=== PATIENT | male | born 1995 | race Caucasian/White ===

== ENCOUNTER 2017-06-28 14:13 | Inpatient (IN) | payer BC, OTHER ==
[~2017-06-28] VITALS: Ht 182.9 cm; Wt 86.2 kg
--- NOTE | 2017-06-28 16:30 | NUR ---
Pre-assessment note: assessed pt in intake office, pt is in stable condition able to sign consents explained protocols and procedures and pt verbalized understanding. pt is stable to be taken to unit at this time
[2017-06-28] MEDS ORDERED: MAG HYDROX/AL HYDROX/SIMETH 30 ML LIQUID UDC PO PRN (16:45)
[2017-06-28] MEDS ORDERED: MIRALAX 17 GM POWD.PACK PO PRN (16:45)
[2017-06-28] MEDS ORDERED: MAGNESIUM HYDROXIDE 30 ML LIQUID UDC PO PRN (16:45)
[2017-06-28] MEDS ORDERED: diphenhydrAMINE 50 MG CAPSULE PO PRN (16:45)
[2017-06-28] MEDS ORDERED: DICYCLOMINE HCL 20 MG TABLET PO PRN (16:45)
[2017-06-28] MEDS ORDERED: LOPERAMIDE HCL 2 MG CAPSULE PO PRN ×2 (16:45)
[2017-06-28] MEDS ORDERED: ONDANSETRON ODT 4 MG TAB.RAPDIS SL PRN (16:45)
[2017-06-28] MEDS ORDERED: CLONIDINE HCL 0.1 MG TABLET PO PRN (16:45)
[2017-06-28] MEDS ORDERED: LORAZEPAM 2 MG/1 ML VIAL IM PRN (16:45)
[2017-06-28] MEDS ORDERED: ONDANSETRON 4 MG/2 ML VIAL IM PRN (16:45)
[2017-06-28] MEDS ORDERED: NICOTINE POLACRILEX 4 MG GUM-PK OF TEN BC PRN (17:00)
[2017-06-28] MEDS ORDERED: NICOTINE 14 MG/24HR PATCH TD PRN (17:00)
[2017-06-28 17:19] LABS: *AMPHETAMINE, URINE POSITIVE (NEGATIVE); *BARBITURATE, URINE NEGATIVE (NEGATIVE); *CANNABINOID, URINE POSITIVE (NEGATIVE); *COCCAINE, URINE NEGATIVE (NEGATIVE); *OPIATE, URINE NEGATIVE (NEGATIVE); *PHENCYCLIDINE SCREEN,URINE NEGATIVE (NEGATIVE)
[2017-06-28] MEDS ORDERED: ONDA4TAB5 PO (17:24)
[2017-06-28] MEDS ORDERED: BENZ0.5T43 PO (17:24)
[2017-06-28] MEDS ORDERED: HYDR-3895 PO (17:24)
[2017-06-28] MEDS ORDERED: PRAZ1CAP5 PO (17:24)
[2017-06-28] MEDS ORDERED: AMOX500C2 PO (17:24)
[2017-06-28] MEDS ORDERED: TRAZ-144 PO (17:24)
[2017-06-28] MEDS ORDERED: OLAN10TA3 PO (17:24)
[2017-06-28] MEDS ORDERED: GABA600T2 PO (17:24)
[2017-06-28] MEDS ORDERED: PRAZ2CAP2 PO (17:24)
[2017-06-28] MEDS ORDERED: GABA-534 PO (17:24)
[2017-06-28] MEDS ORDERED: LITH300C2 PO (17:24)
[2017-06-28] MEDS ORDERED: QUET25TA PO (17:24)
[2017-06-28] MEDS ORDERED: IBUP-1955 PO (17:24)
[2017-06-28] MEDS ORDERED: RISP0.5T20 PO (17:24)
[2017-06-28] MEDS ORDERED: ESTR0.5T PO (17:24)
[2017-06-28] MEDS ORDERED: SPIR100T3 PO (17:40)
[2017-06-28 17:55] LABS: BASOPHILS # (AUTO) 0.1 K/uL (0.0-8.0); BASOPHILS % (AUTO) 0.5 % (0.0-2.0); EOSINOPHILS % (AUTO) 0.1 % (0.0-7.0); HEMATOCRIT 39.1 % (36.7-47.1); HEMOGLOBIN 13.3 g/dL (12.5-16.3); LYMPHOCYTES # (AUTO) 1.2 K/uL (20.0-40.0); LYMPHOCYTES % (AUTO) 9.5 % (20.5-51.5); MEAN CORPUSCULAR HEMOGLOBIN 30.7 uug (23.8-33.4); MEAN CORPUSCULAR HGB CONC 34 g/dL (32.5-36.3); MEAN CORPUSCULAR VOLUME 90.3 fL (73.0-96.2); MONOCYTES # (AUTO) 0.4 K/uL (2.0-10.0); MONOCYTES % (AUTO) 3.6 % (0.0-11.0); NEUTROPHILS # (AUTO) 10.6 K/uL (1.8-8.9); NEUTROPHILS % (AUTO) 86.3 % (38.5-71.5); PLATELET COUNT (AUTO) 167 K/uL (152-348); RED BLOOD CELL COUNT(AUTO) 4.33 MIL/uL (4.06-5.63); WHITE BLOOD COUNT (AUTO) 12.3 K/uL (3.6-10.2)
[2017-06-28] MEDS: THIAMINE HCL 100 MG TABLET PO SCH (18:03)
[2017-06-28] MEDS: LORAZEPAM 1 MG TABLET PO PRN ×2 (18:03→20:56)
--- NOTE | 2017-06-28 18:06 | NUR ---
admission/end of shift note: Pt 22 y/o transgender born a male transforming into a female. Pt is in stable condition at this time, pt appears distant with no eye contact in intake office. after speaking with pt and making her feel more comfortable pt verbalized she has hx of schizoaffective disorder and is currently working as an escort and living out of her car in [place].Pt verbalized she has a seizure 7 years ago. pt is put on seizure precautions at this time. Pt alert and oriented to name, place, and time. P[place]. Skin warm and dry to touch. Respirations even and unlabored. skin check was completed by RN skin is intact. Pt appears disheveled and malodorous. Bilateral fingers with dirt underneath fingernails and toenails. pt with multiple tattoos over generalized body. pt's V/S were taken in intake and at this time in WNL. pt is without a PCP at this time. last ciwa 12 due to anxiety and restlessness. pt verbalized she is anxious and clenching her jaw. ok to administer 1 mg ativan at this time substance hx: -methamphetamine smoke 6-7 hits daily x 3 weeks last used 06/28/17 -etoh (hard alcohol) drinks 750 ml 4-5 times a week last used 06/26/17 -Marijuana smokes 1/8 of a gram a day last used 06/28/17 treatment hx: pt verbalized that she has been to multiple treatment centers and last last one she can recall was [facility] less than 6 months ago
[2017-06-28 18:13] LABS: ALANINE AMINOTRANSFERASE 49 U/L (16-63); ALKALINE PHOSPHATASE 77 U/L (50-136); AMYLASE 31 U/L (25-115); ASPARTATE AMINOTRANSFERASE 26 U/L (15-37); BILIRUBIN,TOTAL 0.5 mg/dL (0.2-1.0); CARBON DIOXIDE 27 mmol/L (21-32); CHLORIDE 103 mmol/L (98-107); CREATININE 0.7 mg/dL (0.6-1.3); GLUCOSE 87 mg/dL (74-106); MAGNESIUM 1.7 mg/dL (1.8-2.4); POTASSIUM 3.7 mmol/L (3.5-5.1); TOTAL PROTEIN, SERUM 7.2 g/dL (6.4-8.2); UREA NITROGEN, BLOOD 11 mg/dL (7-18)
[2017-06-28 18:23] LABS: THYROID STIMULATING HORMONE 2.412 mIU/mL (0.358-3.740)
[2017-06-28] MEDS ORDERED: BENZTROPINE MESYLATE 0.5 MG TABLET PO SCH (18:30)
[2017-06-28] MEDS ORDERED: MAGNESIUM OXIDE 400 MG TABLET PO ONE (18:30)
[2017-06-28 18:35] LABS: ETHANOL < 3 MG/DL (0-0)
--- NOTE | 2017-06-28 19:20 | NUR ---
RN Note Syringe and Needle Disposal Two unused syringes and 4 unused needles disposed of by 2 RNs.
--- NOTE | 2017-06-28 19:30 | NUR ---
START OF SHIFT Received 22 year old male patient admitted on 06/28/17 for Methamphetamine salts, ETOH and Marijuana withdrawal. Pt is alert and oriented x4. Pt is transgender male who identifies as a female. Pt noted to be odorous, disheveled, anxious, restless, irritable, agitated, fidgety, and withdrawn with poor eye contact. Pt reports using methamphetamine prior to admission today and she reports feeling " kind of up". She is not on taper medications but has PRN medications available. Per endorsement, pt received PRN Ativan 1 mg for CIWA:12. Breathing is even and unlabored, safety measures in place. Will monitor.
[2017-06-28 20:00] VITALS: BP 136/70
[2017-06-28] MEDS: TRAZODONE 50 MG TABLET PO SCH (20:49)
[2017-06-28] MEDS: OLANZAPINE 5 MG TABLET PO SCH (20:49)
[2017-06-28] MEDS: LITHIUM CARBONATE 300 MG TABLET PO SCH (20:50)
[2017-06-28] MEDS: ESTRADIOL 2MG PO SCH (20:50)
--- NOTE | 2017-06-28 20:56 | NUR ---
PRN ATIVAN Pt complains of anxiety, agitation, mild nausea, and dizziness. Pt noted to be fidgety and restless in room. CIWA:14. PRN Ativan 2 mg administered as ordered. Will monitor effectiveness.
--- NOTE | 2017-06-28 21:56 | NUR ---
PRN REASSESSMENT PRN Ativan effective. Pt noted to be less anxious and appears more calm. CIWA:9. Safety measures in place. Will monitor.
[2017-06-29] VITALS: BP 140/80
[2017-06-29 05:22] VITALS: BP 133/72
[2017-06-29] MEDS: LORAZEPAM 1 MG TABLET PO PRN ×4 (05:25→21:12)
--- NOTE | 2017-06-29 05:25 | NUR ---
PRN ATIVAN Pt noted to be restless, anxious, and fidgety. CIWA:13. PRN Ativan administered as ordered. Safety measures in place. Will monitor effectiveness.
--- NOTE | 2017-06-29 06:25 | NUR ---
PRN REASSESSMENT PRN medication effective. Pt noted to be more calm and less restless. CIWA:10. Breathing even and unlabored, safety measures in place. Will monitor.
--- NOTE | 2017-06-29 07:03 | NUR ---
END OF SHIFT Pt is a 22 year old male patient admitted on 06/28/17 for Methamphetamine salts, ETOH and Marijuana withdrawal. Pt remains alert and oriented x4. Pt is transgender male who identifies as a female. Pt was noted to be odorous, disheveled, anxious, restless, irritable, agitated, and fidgety during the shift. At 2055 she received PRN Ativan 2mg for CIWA:14. At 524 she received PRN Ativan 2 mg for CIWA:13. Pt reports she was unable to sleep during the night d/t " I smoked before I got here, so I know I wasn't going to sleep" She is not on taper medications but has PRN medications available. Total intake:1500 , Void:x5, BM:x1. CIWA:10 at 624. Breathing is even and unlabored, safety measures in place. Endorsed to AM shift.
--- NOTE | 2017-06-29 07:13 | NUR ---
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 SHE IS ALERT AND AWAKE AT THIS TIME AND STATES SHE DID NOT SLEEP AT ALL LAST NIGHT BUT IS SURE SHE WILL BE ABLE TO SLEEP DURING THE DAY TODAY. PRN MEDICATION REQUIRED ON PM SHIFT : ATIVAN 2MG PO X 2. LAST CIWA WAS 10 @ 0630. CONTINUE TO FOLLOW MD ORDERS AND OFFER SUPPORTIVE CARE.
[2017-06-29 08:00] VITALS: BP 121/78
[2017-06-29] MEDS: MULTIVITAMINS,THERAPEUTIC TABLET PO SCH (08:54)
[2017-06-29] MEDS: SPIRONOLACTONE 100 MG TABLET PO SCH (08:54)
[2017-06-29] MEDS: THIAMINE HCL 100 MG TABLET PO SCH (08:54)
[2017-06-29] MEDS: FOLIC ACID 1 MG TABLET PO SCH (08:55)
[2017-06-29] MEDS: ESTRADIOL 2MG PO SCH ×3 (08:55→20:08)
[2017-06-29] MEDS: OLANZAPINE 5 MG TABLET PO SCH ×2 (08:55→15:06)
[2017-06-29] MEDS: LITHIUM CARBONATE 300 MG TABLET PO SCH ×2 (08:55→20:08)
--- NOTE | 2017-06-29 08:55 | NUR ---
PRN ATIVAN ATIVAN 1MG PO GIVEN FOR CIWA 11 AND REPORTS OF INCREASED ANXIETY WILL REASSESS
[2017-06-29] MEDS ORDERED: TUBERCULIN,PURIF.PROT.DERIV. 5 TU/0.1 ML TEST ID ONE (09:00)
[2017-06-29] MEDS ORDERED: PATIENT MAY USE OWN MED- MD OK PO SCH (09:00)
--- NOTE | 2017-06-29 09:55 | NUR ---
PRN REASSESS PATIENT IS STILL AWAKE IN BED BUT LESS ANXIOUS, ANTWAN Corona , STATES HE WOULD RATHER PT HAVE VISTARIL INSTEAD OF ATIVAN AT THIS TIME, WILL FOLLOW MD ORDERS.
--- NOTE | 2017-06-29 10:00 | NUR ---
PRN COGENTIN 0.5 MG PO GIVEN PER MD FOR JAW SPASMS, WILL CONTINUE TO MONITOR
[2017-06-29] MEDS ORDERED: GABAPENTIN 300 MG CAPSULE PO ONE (11:15)
[2017-06-29] MEDS ORDERED: HYDROXYZINE PAMOATE 25 MG CAPSULE PO ONE (11:15)
[2017-06-29] MEDS ORDERED: HYDROXYZINE PAMOATE 25 MG CAPSULE PO PRN (11:15)
[2017-06-29 12:00] VITALS: BP 109/59
[2017-06-29] MEDS ORDERED: IBUP-1953 PO (12:41)
[2017-06-29] MEDS ORDERED: CLON0.1T14 PO (12:41)
[2017-06-29] MEDS ORDERED: GABA-534 PO (12:41)
[2017-06-29] MEDS ORDERED: HYDR-3895 PO (12:41)
[2017-06-29] MEDS ORDERED: DIPH50CA37 PO (12:41)
--- NOTE | 2017-06-29 15:00 | NUR ---
ADDITIONAL ZYPREXA PSYCHIATRIST EVALUATED PATIENT, SHE IS HAVING VISUAL AND AUDITORY HALLUCINATIONS, CHANGED ORDER TO 10MG PO TID. 10MG PO GIVEN
[2017-06-29 16:00] VITALS: BP 130/76
--- NOTE | 2017-06-29 16:50 | NUR ---
PRN ATIVAN ATIVAN 2MG PO GIVEN FOR CIWA 17 PATIENT IS STILL HAVING AUDITORY AND VISUAL HALLUCINATIONS AND IS GETTING AGITATED , PACING THE HALLS, SHE STILL HAS NOT SLEPT SINCE SHE WAS ADMITTED OVER 24 HOURS AGO, WILL CONTINUE TO MONITOR AND ASSESS.
--- NOTE | 2017-06-29 17:50 | NUR ---
ATIVAN REASSESS CIWA 13 ( WAS 17) , ATIVAN 2MG PO SOMEWHAT EFFECTIVE, PT IS STILL PACING IN HER ROOM AND REPORTS TO BEING IRRITABLE, CONTINUE TO MONITOR
--- NOTE | 2017-06-29 18:56 | NUR ---
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 PATIENT HAS SCHIZOAFFECTIVE DISORDER AND HAS BEEN RE STARTED ON HER PSYCHE MEDS BUT IS EXPERIENCING AUDIO AND VISUAL HALLUCINATIONS. PATIENT HAS BEEN IRRITABLE AND AGITATED REQUIRING ADDITIONAL PO ZYPREXA AND ATIVAN THIS SHIFT, SHE HAS NOT SLEPT SINCE SHE WAS ADMITTED OVER 24 HOURS AGO AND HAS DIFFICULTY SITTING STILL, SHE PACES THE HALLS AND FREQUENTLY GOES TO THE PATIO TO SMOKE, SHE CANNOT BE REDIRECTED TO STAY IN BED AND CLOSE EYES AND RELAX. PRN MEDS GIVEN ON THIS SHIFT: COGENTIN, ATIVAN X2 AND A 1 TIME ORDER FOR VISTARIL 50MG PO. PATIENT HAD A FLUID INTAKE OF 2000 ML, 5 VOIDS AND 1 BM. LAST CIWA 13 @ 1800. CONTINUE TO FOLLOW MD PLAN OF CARE. ENDORSED TO NIGHT NURSE.
[2017-06-29 20:00] VITALS: BP 129/77
--- NOTE | 2017-06-29 20:00 | NUR ---
START OF SHIFT NOTE RECEIVED REPORT FROM DAY SHIFT NURSE. 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 PATIENT IS ON PRN MEDICATION. PATIENT WITH EPISODE OF AUDITORY AND VISUAL HALLUCINATION DURING THE DAY. PATIENT WAS GIVEN PRN ATIVAN 1 MG , ATIVAN 2 MG AND COGENTIN. LAST CIWA 13. PATIENT WITH NEW ORDER OF COGENTIN. PATIENT RECEIVED DISORIENTED, PER PATIENT HE DOES NOT HAVE A BED AND THAT HES LEAVING TODAY. PATIENT NOTED WITH AUDITORY AND VISUAL HALLUCINATION. REDIRECTED PATIENT. PATIENT ORIENTED X 2. REALITY ORIENTATION PROVIDED. PATIENT WAS PUT ON 1:1 FOR SAFETY. WILL CONTINUE TO MONITOR.
[2017-06-29] MEDS: GABAPENTIN 300 MG CAPSULE PO SCH (20:07)
[2017-06-29] MEDS: TRAZODONE 50 MG TABLET PO SCH (20:07)
--- NOTE | 2017-06-29 20:07 | NUR ---
ONE TIME TRAZADONE ADMINISTRATION PATIENT WAS GIVEN ONE TIME TRAZADONE , PATIENT'S STILL HAVING TROUBLE FALLING ASLEEP SINCE ADMISSION. WILL CONTINUE TO MONITOR
[2017-06-29] MEDS: TRAZODONE 100 MG TABLET PO SCH (21:12)
--- NOTE | 2017-06-29 21:22 | NUR ---
PRN ATIVAN ADMINISTRATION PATIENT ANXIOUS, RESTLESS , IRRITABLE AND HAVING VISUAL AND AUDITORY HALLUCINATIONS. PATIENT STATES THERE'S CAT IN THE ROOM AND FEW PEOPLE. HE ALSO STATES HE HEARS VOICES IN HIS HEAD BUT WILL NOT TELL US WHAT THEY TELL HIM. REALITY ORIENTATION PROVIDED. CIWA 15. WILL MONITOR FOR EFFECTIVENESS
--- NOTE | 2017-06-29 21:50 | NUR ---
RN note one-time Haldol and Benadryl Pt noted to be increasingly confused, disoriented, agitated and paranoid. Dr. Fox notified and he ordered one-time Haldol 5 mg PO and Benadryl 50 mg PO.
[2017-06-29] MEDS ORDERED: diphenhydrAMINE 50 MG CAPSULE PO ONE (22:00)
[2017-06-29] MEDS ORDERED: HALOPERIDOL 5 MG TABLET PO ONE (22:00)
--- NOTE | 2017-06-29 22:22 | NUR ---
PRN ATIVAN RE-ASSESSMENT PATIENT SITTING IN BED, LESS ANXIOUS, CALM BUT STILL FIDGETY. CIWA 10 UPON ASSESSMENT. WILL CONTINUE TO MONITOR.
--- NOTE | 2017-06-29 22:50 | NUR ---
PRN HALDOL AND BENADRYL RE-ASSESSMENT PATIENT SITTING IN BED , LESS ANXIOUS, STILL FIDGETY, MORE CALM, HALDOL AND BENADRYL HELPFUL. WILL CONTINUE TO MONITOR
--- NOTE | 2017-06-30 00:27 | NUR ---
PRN ATIVAN ADMINISTRATION PATIENT SEVERELY ANXIOUS, AGITATED, RESTLESS, PACING, HAVING VISUAL AND AUDITORY HALLUCINATIONS. CIWA 17. REALITY ORIENTATION PROVIDED. WILL MONITOR FOR EFFECTIVENESS
[2017-06-30] MEDS ORDERED: LORAZEPAM 1 MG TABLET PO ONE (00:30)
--- NOTE | 2017-06-30 01:27 | NUR ---
PRN ATIVAN RE-ASSESSMENT PATIENT LYING IN BED COMFORTABLY AT THIS TIME WITH EYES CLOSED. RESPIRATION EVEN AND UNLABORED. WILL CONTINUE TO MONITOR. CIWA DEFERRED
--- NOTE | 2017-06-30 04:00 | NUR ---
CIWA DEFERRED PATIENT SLEEPING. BLOOD PRESSURE REFUSED. P-85 R-15 AND Sp02 AT 98% IN RA. WILL CONTINUE TO MONITOR.
--- NOTE | 2017-06-30 07:09 | NUR ---
END OF SHIFT NOTE PATIENT SLEPT 5 HOURS. FLUID INTAKE 500 ML. VOIDED X 0. NO BM. MONITORED PATIENT THROUGHOUT SHIFT. CONTINUE ON 1:1 FOR SAFETY. PATIENT NOTED WITH AUDITORY AND VISUAL HALLUCINATION DURING SHIFT. PATIENT HAD DIFFICULTY FALLING ASLEEP. ONE TIME TRAZADONE GIVEN. PRN ATIVAN GIVEN 2111 FOR CIWA 15. AT 215, PATIENT WAS GIVEN ONE TIME HALDOL AND BENADRYL GIVEN, MILDLY EFFECTIVE. AT 0027, PATIENT WAS GIVEN PRN ATIVAN 2 MG FOR CIWA 17, EFFECTIVE. PATIENT WAS ASLEEP AT 0127 . CONTINUOS REALITY ORIENTATION PROVIDED. SAFETY MEASURES IN PLACE . CALL LIGHT IN REACH. LAST CIWA 17.
--- NOTE | 2017-06-30 07:20 | NUR ---
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 PATIENT HAS BEEN HAVING VISUAL AND AUDITORY HALLUCINATIONS SINCE ADMISSION AND HAS HAD TROUBLE SLEEPING, SHE ALSO HAS SCHIZOAFFECTIVE DISORDER WHICH SHE TAKES LITHIUM FOR. PRN MEDS REQUIRED ON PM SHIFT : ATIVAN X2, HALDOL, BENADRYL AND TRAZODONE. PATIENT EVENTUALLY SLEPT FOR 5 HOURS. SHE NEEDS CONSTANT REORIENTATION AND DIRECTION, FOR SAFETY SHE IS ON A 1:1 WITH SITTER AT BEDSIDE. LAST CI 17. CONTINUE TO OFFER SUPPORT AND FOLLOW MD PLAN OF CARE.
[2017-06-30 08:00] VITALS: BP 118/67
[2017-06-30 08:07] LABS: HEPATITIS B SURFACE AG Negative (Negative)
[2017-06-30] MEDS: LITHIUM CARBONATE 300 MG TABLET PO SCH ×2 (08:39→20:50)
[2017-06-30] MEDS: MULTIVITAMINS,THERAPEUTIC TABLET PO SCH (08:40)
[2017-06-30] MEDS: SPIRONOLACTONE 100 MG TABLET PO SCH (08:40)
[2017-06-30] MEDS: GABAPENTIN 300 MG CAPSULE PO SCH ×2 (08:40→20:50)
[2017-06-30] MEDS: OLANZAPINE 5 MG TABLET PO SCH ×3 (08:40→16:37)
[2017-06-30] MEDS: FOLIC ACID 1 MG TABLET PO SCH (08:40)
[2017-06-30] MEDS: ESTRADIOL 2MG PO SCH ×3 (08:40→20:50)
[2017-06-30] MEDS: THIAMINE HCL 100 MG TABLET PO SCH (08:40)
--- NOTE | 2017-06-30 08:47 | NUR ---
PRN VISTARIL VISTARIL 25MG PO GIVEN PER PT REQUEST FOR ANXIETY, WILL REASSESS
[2017-06-30] MEDS ORDERED: HALOPERIDOL 2 MG TABLET PO SCH (09:45)
--- NOTE | 2017-06-30 09:47 | NUR ---
PRN REASSESS PT APPEARS MORE CALM , VISTARIL 25MG PO EFFECTIVE, WILL CONTINUE TO MONITOR AND OFFER ASSISTANCE
[2017-06-30 12:00] VITALS: BP 134/72
--- NOTE | 2017-06-30 15:20 | NUR ---
ENDORSEMENT PATIENT ENDORSED TO MOUSTAPHA MERIDA FOR CONTINUATION OF CARE, PATIENT ASLEEP IN BED AT THIS TIME, SITTER AT BEDSIDE, ALL PERTINENT INFO EXCHANGED WITH RN. PRN MEDS GIVEN THIS SHIFT : VISTARIL 25MG PO. LAST LOSWA 8 @ 1500.
--- NOTE | 2017-06-30 15:25 | NUR ---
ASSUMED CARE OF PT WHO IS ASLEEP WITH SITTER AT BEDSIDE. RESP EVEN AND UNLABORED. BED LOW AND LOCKED.
[2017-06-30 16:00] VITALS: BP 122/75
[2017-06-30 17:34] VITALS: BP 122/75
[2017-06-30] MEDS: HALOPERIDOL 1 MG TABLET PO SCH (17:45)
--- NOTE | 2017-06-30 18:47 | NUR ---
END OF SHIFT: PT HAS BEEN SLEEPING ON AND OFF SINCE I ASSUMED CARE THIS AFTERNOON. HE WAS GIVEN HALDOL,ZYPREXA AND ESTRADIOL ORDERED. HE HJAS SITTER AT BEDSIDE FOR SAFETY.PRNS AVAILABLE FOR S/S OF W/D . ANTWAN Junior WILL PASS SHIFT REPORT TO ONCOMING NIGHT NURSE.
--- NOTE | 2017-06-30 19:00 | NUR ---
Start of Shift Patient Received. Patient is in bed sleeping. Breathing even and non labroed. Per endorsement, patient is currently receiving PRN medications for increased signs and symptoms of withdrawal. Patient has been noted with a history of seizures and past medical history of schizoaffective disorder. No episodes of hallucinations noted during shift. No PRN medications administered. Last noted CIWA 8. Patient remains on 1:1 for safety. All needs attended to promptly. Will continue plan of care as ordered.
[2017-06-30 20:38] VITALS: BP 123/78
[2017-06-30] MEDS: diphenhydrAMINE 25 MG CAP PO SCH (20:49)
[2017-06-30] MEDS: TRAZODONE 100 MG TABLET PO SCH (20:49)
[2017-06-30] MEDS: IBUPROFEN 400 MG TABLET PO PRN (20:50)
--- NOTE | 2017-06-30 20:58 | NUR ---
PRN Medication Administration Patient is noted verbalizing increased pain 5/10 due to toothache. PRN Motrin administered. Will continue to monitor.
--- NOTE | 2017-06-30 22:00 | NUR ---
PRN Medication Reassessment Patient is noted in bed sleeping. Breathing even and non labored. Patient received PRN Motrin for increased pain 5/10 due to toothache. PRN noted to be effective as evidence of patient sleeping with no facial grimacing noted. will continue to monitor.
--- NOTE | 2017-07-01 00:15 | NUR ---
Vitals Refused patient is noted in bed sleeping. Breathing even and non labored. Vitals Refused. Respirations noted to be 16. CIWA not able to be completed as per order. Will continue to monitor. Addendum: 07/01/17 at 0105 by CINDI DIEHL LVN Amended: Links added.
--- NOTE | 2017-07-01 04:15 | NUR ---
Vitals Refused Patient is noted in bed sleeping. Breathing even and non labored. Vitals Refused. Respirations noted to be 16. CIWA not able to be completed as per order. Will continue to monitor.
--- NOTE | 2017-07-01 07:08 | NUR ---
End of Shift Patient is in bed sleeping but easily aroused to verbal stimuli. Breathing even and non labored. Patient continues on PRN Medications for increased signs and symptom. Patient received PRN Motrin for pain 5/10 due to toothache with medication noted to be effective. No episodes of confusion or hallucinations noted. Patient noted to sleep a total of 9 hours. Last noted CIWA 13. Patient remains on 1:1 for safety. All needs attended to promptly. Will endorse to continue plan of care as ordered.
--- NOTE | 2017-07-01 07:45 | NUR ---
START OF SHIFT Rcvd endorse from ongoing nurse, client is in room, a/o x 4. Client presents with depressed mood, flat affect, clammy skin, avoidant gaze, and difficulty concentrating. Client reports anxiety, irritability, inability to have a good night sleep, abdominal spasms, decreased appetite and fatigue. Client denies any hallucinations. Client request the 1:1 for safety to be removed from the room stating, "I don't understand why someone has to be in my room at all times." Additional education regarding 1:1 sitter for safety discussed with client. Client has no inquiries at this time. Encourage client to attend group therapy to learn skills to maintain sober. Encourage PO fluid as tolerated to maintain hydration. Last CIWA 13 @ 1999. Client slept 5 hrs. Seizure precautions rendered. Call light within reach.
[2017-07-01 08:30] VITALS: BP 123/79
[2017-07-01] MEDS: GABAPENTIN 300 MG CAPSULE PO SCH ×3 (08:43→20:24)
[2017-07-01] MEDS: OLANZAPINE 5 MG TABLET PO SCH ×3 (08:43→16:12)
[2017-07-01] MEDS: THIAMINE HCL 100 MG TABLET PO SCH (08:43)
[2017-07-01] MEDS: SPIRONOLACTONE 100 MG TABLET PO SCH (08:43)
[2017-07-01] MEDS: IBUPROFEN 400 MG TABLET PO PRN ×3 (08:44→16:57)
[2017-07-01] MEDS: MULTIVITAMINS,THERAPEUTIC TABLET PO SCH (08:44)
[2017-07-01] MEDS: ACETAMINOPHEN 325 MG TABLET PO PRN ×2 (08:44→16:18)
[2017-07-01] MEDS: LITHIUM CARBONATE 300 MG TABLET PO SCH ×2 (08:44→20:23)
[2017-07-01] MEDS: HALOPERIDOL 1 MG TABLET PO SCH ×2 (08:44→16:12)
[2017-07-01] MEDS: FOLIC ACID 1 MG TABLET PO SCH (08:44)
[2017-07-01] MEDS: ESTRADIOL 2MG PO SCH ×3 (08:44→20:24)
--- NOTE | 2017-07-01 08:44 | NUR ---
PRN Motrin 400mg PO and Tylenol 650mg PO administered for pain 8/10 on Left upper toothache. Call light within reach
--- NOTE | 2017-07-01 09:44 | NUR ---
Reassess PRN Motrin 400mg and Tylenol 650mg, client reports slight relief from Left upper toothache, now at 2/10, but tolerable. Call light within reach
--- NOTE | 2017-07-01 12:50 | NUR ---
PRN Motrin 400mg PO administered for pain 6/10 on Right upper toothache. Call light within reach.
[2017-07-01 12:55] VITALS: BP 107/54
[2017-07-01] MEDS ORDERED: BENZOCAINE ORAL CARE 12 ML BOTTLE MM PRN (13:45)
--- NOTE | 2017-07-01 13:50 | NUR ---
Reassess PRN Motrin 400mg, client reports relief from pain 2/10 on Right upper toothache, but tolerable. Call light within reach
--- NOTE | 2017-07-01 16:18 | NUR ---
PRN Tylenol 650mg PO and Anbesol MM PO administered for dental pain 09/24 on R upper tooth Call light within reach
[2017-07-01 16:55] VITALS: BP 106/63
--- NOTE | 2017-07-01 16:57 | NUR ---
PRN Motrin 400mg PO administered for pain 6/10 on Right upper toothache. Call light within reach.
--- NOTE | 2017-07-01 17:57 | NUR ---
Reassess PRN Motrin 400mg, client reports relief from pain 2/10 on Right upper toothache, but tolerable. Call light within reach
--- NOTE | 2017-07-01 19:00 | NUR ---
Start of Shift Patient Received. Patient is in his room, sleeping but easily aroused to verbal stimuli. Breathing even and non labored. Per endorsement, patient continues on PRN medications for increased signs and symptoms but is set for discharge tomorrow 07/01/17. Patient received multiple PRN medications for complains of pain due to toothache. New order also received for Ambesol with medications noted to be effective. No episodes of confusion or hallucinations noted. Last noted CIWA 4. 1:1 discontinued. All needs attended to promptly. Will continue plan of care as ordered.
--- NOTE | 2017-07-01 19:25 | NUR ---
END OF SHIFT Endorse client to incoming nurse, client is in room, a/o x 4. Client continues to isolated in the room, continues to present with anxious mood, flat affect, decreased appetite, and fatigue. 1210mL PO fluid intake, void x 4, stool x 1. Client consumes 50-75% of meals. PRN medications administered and noted per protocol. Client is not compliant with group therapy, encouragement needed. Last CIWA 4 @ 1600. Seizure precaution rendered. Call light within reach
[2017-07-01 20:20] VITALS: BP 118/75
[2017-07-01] MEDS: diphenhydrAMINE 25 MG CAP PO SCH (20:23)
[2017-07-01] MEDS: TRAZODONE 100 MG TABLET PO SCH (20:23)
[2017-07-02 00:19] VITALS: BP 119/73
--- NOTE | 2017-07-02 04:15 | NUR ---
Vitals Refused Patient is noted in bed sleeping. breathing even and non labored. No signs of restlessness or facial grimacing. Vitals Refused. respirations noted to be 16. CIWA not able to be completed as per order. Will continue to monitor. Addendum: 07/02/17 at 0520 by CINDI DIEHL LVN Amended: Links added.
--- NOTE | 2017-07-02 06:59 | NUR ---
End of Shift Patient is noted in bed sleeping. Breathing even and non labored. Patient is set for discharge today 07/02/17. No PRN Medications administered. Patient noted to sleep a total of 8 hours. Last noted CIWA 8. All needs attended to promptly. Will endorse to continue plan of care as ordered.
--- NOTE | 2017-07-02 07:25 | NUR ---
START OF SHIFT & PRN Zofran 4mg SL Rcvd endorse from ongoing nurse, client is in room, a/o x 4. Client presents with depressed mood and flat affect, flushed face, skin warm/dry to touch. Client stated, "I think I have food poisoning, I just throw up." Client's vitals T 98.3, P, 87, RR 18, BP 117/68, spO2 @ 98% on RA. Client denies abdominal pain, lightheadedness, headache, loss of appetite, generalized body aches, or weakness. PRN Zofran 4mg SL administered for emesis x 1 episode. will continue to monitor. [facility] Client had an uneventful night, slept 8 hrs. Last CIWA 8 @ 2000. Call light within reach.
[2017-07-02] MEDS: OLANZAPINE 5 MG TABLET PO SCH (08:21)
[2017-07-02] MEDS: SPIRONOLACTONE 100 MG TABLET PO SCH (08:21)
[2017-07-02] MEDS: ESTRADIOL 2MG PO SCH (08:21)
[2017-07-02] MEDS: FOLIC ACID 1 MG TABLET PO SCH (08:21)
[2017-07-02] MEDS: HALOPERIDOL 1 MG TABLET PO SCH (08:21)
[2017-07-02] MEDS: LITHIUM CARBONATE 300 MG TABLET PO SCH (08:21)
[2017-07-02] MEDS: THIAMINE HCL 100 MG TABLET PO SCH (08:21)
[2017-07-02] MEDS: MULTIVITAMINS,THERAPEUTIC TABLET PO SCH (08:21)
[2017-07-02] MEDS: GABAPENTIN 300 MG CAPSULE PO SCH (08:22)
--- NOTE | 2017-07-02 08:25 | NUR ---
Reassess PRN Zofran 4mg, client reports no more emesis or nausea at this time.
[2017-07-02 08:31] VITALS: BP 117/68
--- NOTE | 2017-07-02 09:32 | NUR ---
Discharge Note Client discharged in stable condition with all valuable, belongings and home meds. Client denies SI/HI. To [facility] via private car.
== END 2017-07-02 09:34 | DRG 895 ==
LOC: SRC 15:59
PROVIDERS: ADMIT Internal Medicine; ATTEND Internal Medicine
PROC: HZ2ZZZZ Detoxification Services for Substance Abuse Treatment (ICD-10-PCS; principal; 2017-06-28)
PROC: HZ51ZZZ Individual Psychotherapy for Substance Abuse Treatment, Behavioral (ICD-10-PCS; 2017-06-30)
DX: F10.230 Alcohol dependence with withdrawal, uncomplicated (principal); E83.42 Hypomagnesemia; F10.229 Alcohol dependence with intoxication, unspecified; F15.220 Other stimulant dependence with intoxication, uncomplicated; Y90.9 Presence of alcohol in blood, level not specified; Z81.1 Family history of alcohol abuse and dependence; F64.9 Gender identity disorder, unspecified; Z59.0 Homelessness; Z59.1 Inadequate housing; F17.210 Nicotine dependence, cigarettes, uncomplicated; F13.239 Sedative, hypnotic or anxiolytic dependence with withdrawal, unspecified; F25.9 Schizoaffective disorder, unspecified; F12.20 Cannabis dependence, uncomplicated; G47.00 Insomnia, unspecified; D72.829 Elevated white blood cell count, unspecified
CPT/HCPCS: 36415; 70030-TC; 80307; 80324; 80349; 83735; 84443; 85025; 86592; 86705; 86803; 87340; 87806; 93005; A4663; A9150; G0480; Q0162; Q0163

== ENCOUNTER 2017-11-21 00:21 | Inpatient (IN) | payer BC, OTHER ==
[~2017-11-21] VITALS: Ht 182.9 cm; Wt 73.5 kg
[~2017-11-21 00:21] MED LIST: BENZ0.5T43 PO; CLON0.1T14 PO; DIPH50CA37 PO; ESTR0.5T PO; GABA-534 PO; HYDR-3895 PO; IBUP-1953 PO; IBUP-1955 PO; LITH300C2 PO; OLAN10TA3 PO; ONDA4TAB5 PO; PRAZ2CAP2 PO; QUET25TA PO; RISP0.5T20 PO; SPIR100T5 PO; TRAZ-182 PO
--- NOTE | 2017-11-21 01:00 | NUR ---
Intake Assessment Assessment done at intake office. Speech is clear and audible. He is guarded, has a flat affect and anxious mood and worried expression. Pt noted to be mildly intoxicated from Methamphetamine but able to answer questions appropriately. He presented with anxiety, clammy skin, stuffy nose and fine tremors. No N/V/D noted. Pt denies any pain/discomfort at this time. Bowel sounds active in all four quadrants. Vitals taken immediately B/P 157/95, PA 95, RR 18, Temp 97.8, O2Sat 98%. He reports that he is here to detox off from Heroin IV. Pt also reports use of Meth. Pt is coherent and is able to sign consent & respond to questions appropriately. Explained to pt unit protocols such as Q4H Vitals signs check & regarding destruction of any controlled substances brought to facility and handling of all medications. Will continue admission process when pt arrives in the unit.
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
[2017-11-21] MEDS ORDERED: MAGNESIUM HYDROXIDE 30 ML LIQUID UDC PO PRN (01:45)
[2017-11-21] MEDS ORDERED: HYDROXYZINE PAMOATE 25 MG CAPSULE PO PRN (01:45)
[2017-11-21] MEDS ORDERED: DICYCLOMINE HCL 20 MG TABLET PO PRN (01:45)
[2017-11-21] MEDS ORDERED: CLONIDINE HCL 0.1 MG TABLET PO PRN (01:45)
[2017-11-21] MEDS ORDERED: LORAZEPAM 1 MG TABLET PO PRN (01:45)
[2017-11-21] MEDS ORDERED: BUPRENORPHINE HCL 2 MG TAB.SUBL SL PRN (01:45)
[2017-11-21] MEDS ORDERED: LOPERAMIDE HCL 2 MG CAPSULE PO PRN ×2 (01:45)
[2017-11-21] MEDS ORDERED: IBUPROFEN 600 MG TABLET PO PRN (01:45)
[2017-11-21] MEDS ORDERED: MAG HYDROX/AL HYDROX/SIMETH 30 ML LIQUID UDC PO PRN (01:45)
[2017-11-21] MEDS ORDERED: ACETAMINOPHEN 325 MG TABLET PO PRN (01:45)
[2017-11-21] MEDS ORDERED: ONDANSETRON 4 MG/2 ML VIAL IM PRN (01:45)
[2017-11-21] MEDS ORDERED: ONDANSETRON ODT 4 MG TAB.RAPDIS SL PRN (01:45)
[2017-11-21] MEDS ORDERED: METHOCARBAMOL 750 MG TABLET PO PRN (01:45)
[2017-11-21] MEDS ORDERED: diphenhydrAMINE 50 MG CAPSULE PO PRN (01:45)
[2017-11-21] MEDS ORDERED: MIRALAX 17 GM POWD.PACK PO PRN (01:45)
[2017-11-21] MEDS ORDERED: GABA600T2 PO (02:39)
[2017-11-21 04:00] VITALS: BP 140/95
[2017-11-21 04:11] LABS: BASOPHILS % (AUTO) 0.4 % (0.0-2.0); EOSINOPHILS % (AUTO) 0.1 % (0.0-7.0); HEMATOCRIT 39.8 % (36.7-47.1); HEMOGLOBIN 13.9 g/dL (12.5-16.3); LYMPHOCYTES # (AUTO) 1.5 K/uL (20.0-40.0); LYMPHOCYTES % (AUTO) 19.9 % (20.5-51.5); MEAN CORPUSCULAR HEMOGLOBIN 30.6 uug (23.8-33.4); MEAN CORPUSCULAR HGB CONC 35 g/dL (32.5-36.3); MEAN CORPUSCULAR VOLUME 87.7 fL (73.0-96.2); MONOCYTES # (AUTO) 0.5 K/uL (2.0-10.0); NEUTROPHILS # (AUTO) 5.3 K/uL (1.8-8.9); NEUTROPHILS % (AUTO) 72.6 % (38.5-71.5); PLATELET COUNT (AUTO) 145 K/uL (152-348); RED BLOOD CELL COUNT(AUTO) 4.54 MIL/uL (4.06-5.63); WHITE BLOOD COUNT (AUTO) 7.3 K/uL (3.6-10.2)
[2017-11-21 04:30] LABS: *BARBITURATE, URINE NEGATIVE (NEGATIVE); *CANNABINOID, URINE POSITIVE (NEGATIVE); *COCCAINE, URINE NEGATIVE (NEGATIVE); *OPIATE, URINE NEGATIVE (NEGATIVE); *PHENCYCLIDINE SCREEN,URINE NEGATIVE (NEGATIVE)
[2017-11-21 04:36] LABS: ETHANOL < 3 MG/DL (0-0)
[2017-11-21 04:38] LABS: ALANINE AMINOTRANSFERASE 35 U/L (16-63); ALKALINE PHOSPHATASE 58 U/L (50-136); AMYLASE 39 U/L (25-115); ASPARTATE AMINOTRANSFERASE 27 U/L (15-37); BILIRUBIN,TOTAL 0.8 mg/dL (0.2-1.0); CARBON DIOXIDE 27 mmol/L (21-32); CHLORIDE 101 mmol/L (98-107); CREATININE 0.9 mg/dL (0.6-1.3); GLUCOSE 92 mg/dL (74-106); LIPASE 78 U/L (73-393); MAGNESIUM 1.5 mg/dL (1.8-2.4); POTASSIUM 3.5 mmol/L (3.5-5.1); TOTAL PROTEIN, SERUM 7.4 g/dL (6.4-8.2); UREA NITROGEN, BLOOD 12 mg/dL (7-18)
[2017-11-21 04:43] LABS: *AMPHETAMINE, URINE POSITIVE (NEGATIVE)
[2017-11-21 04:55] LABS: THYROID STIMULATING HORMONE 2.881 mIU/mL (0.358-3.740)
--- NOTE | 2017-11-21 07:08 | NUR ---
End of Shift Note: Patient is a 22 y.o male admitted this morning at 0117am for medically supervised withdrawal from heroin use. Patient also reported using Meth. Patient is alert & oriented x4. Pt came in mildly intoxicated from Meth. Pt last use of Heroin was 2 days ago. Pt presented with fine tremors, clammy skin, anxiety, stuffy nose. COWS 6 noted. No PRN medications given. PRNs available to manage symptoms of withdrawal. Pt remained stable. All needs attended. Pt noted with no sleep. Fluid intake :1210ml, Voided 1x with no BM. Safety measures in place. Will endorse pt to day shift nurse.
--- NOTE | 2017-11-21 07:30 | NUR ---
Start Of Shift Patient is a 22 yr old transgender male to female who was admitted to [facility] early this am 11/21/17 for a medically supervised withdrawal from Opiates ( heroin IV) and also states she was abusing Methamphetamines and Marijuana. She is awaiting to see the MD so no taper started but PRN medications are available. She is awake in bed at this time and states she has not slept yet, she states she has mild withdrawal symptoms, some aches in her legs and stuffy nose, no PRN medications were requested. Her last COWS was 6. safety measures in place, call light within reach. Continue to offer support and encouragement.
[2017-11-21 08:00] VITALS: BP 132/67
--- NOTE | 2017-11-21 08:00 | NUR ---
COWS 5 Withdrawal symptoms present as stuffy nose, Insomnia, restlessness and leg aches. No PRN medications requested though were offered.
[2017-11-21] MEDS: MULTIVITAMINS,THERAPEUTIC TABLET PO SCH (08:25)
[2017-11-21] MEDS ORDERED: MAGNESIUM OXIDE 400 MG TABLET PO ONE (09:00)
--- NOTE | 2017-11-21 10:30 | NUR ---
PRN Patient requests PRN Subutex and Ativan for withdrawal symptoms which present as increased anxiety and irritability, generalized body aches, fatigue, insomnia and lethargy. COWS at this time = 12 Addendum: 11/21/17 at 1126 by ELODIA MILLER RN Subutex 4mg SL and Ativan 2mg PO given
--- NOTE | 2017-11-21 11:30 | NUR ---
PRN Reassess Patient states relief of withdrawal symptoms from Subutex and Ativan will continue to monitor
[2017-11-21 12:00] VITALS: BP 136/87
--- NOTE | 2017-11-21 12:00 | NUR ---
COWS 10 Patient presents with anxiety, irritability, inability to sleep, clammy skin, yawning, restlessness and stuffy nose PRN Subutex and Ativan were given at 1030 with positive results
[2017-11-21] MEDS ORDERED: MELA3TAB PO (14:51)
[2017-11-21] MEDS: SPIRONOLACTONE 100 MG TABLET PO SCH (15:13)
[2017-11-21] MEDS: ESTRADIOL 2 MG PO SCH ×2 (15:14→20:09)
[2017-11-21] MEDS: [UNRECOGNIZED DRUG - OTHER] PO SCH ×2 (15:14→20:09)
--- NOTE | 2017-11-21 16:11 | NUR ---
COWS 7 Patient presents with anxiety, irritability, inability to sleep, clammy skin, yawning, restlessness and stuffy nose
[2017-11-21 17:00] VITALS: BP 130/81
--- NOTE | 2017-11-21 19:22 | NUR ---
End Of Shift Patient is a 22 yr old transgender male to female who was admitted to [facility] early this am 11/21/17 for a medically supervised withdrawal from Opiates ( heroin IV) and also states she was abusing Methamphetamines and Marijuana. No taper ordered but PRN medications are available. PRN medications given this shift : Subutex 4mg SL and Ativan 2mg PO. She will be discharged to [facility] tomorrow 11/22/17. she states her withdrawal symptoms include: aches in her legs and stuffy nose, irritability and anxiety, she has been emotionally volatile and weepy today. Her last COWS was 7@ 1600. She had a fluid intake of 3000 ML, 5 Voids and 0 BM. She has not attended any groups nor been interacting with her peers. Safety measures in place, call light within reach. Continue to offer support and encouragement. Endorsed to shift superintendent
--- NOTE | 2017-11-21 19:30 | NUR ---
COWS 7 Pt anxious, untrusting, fearful, unable to sit still, withdrawn, and guarded. Denies auditory or visual hallucinations. Denies pain, sweating, or chills. Continue to monitor.
--- NOTE | 2017-11-21 19:30 | NUR ---
Start of Shift Received 22 year old transgender male to female admitted 11/21/17 to [facility] for medically supervised withdrawal from Opiates. Pt received PRN Ativan and Subutex during the day. Last COWS 7 @ 1600. Pt is awake alert and oriented. Denies pain, and any auditory or visual hallucinations. Pt is anxious, agitated and unable to sit still. Pt fearful and untrusting of staff and being at this/any facility. Pt states, you all dont understand and are always messing things up. Reassured pt we are here to help and to protect her in any way. Pt had placed trash can in front of door, she was made aware that we need to have free access to room for safety, she verbalized understanding and agreed to comply. Encouraged her to express feelings and concerns, declines at this time. Bed low, side rails up x 2 and call schroeder in reach. Will continue close monitoring.
--- NOTE | 2017-11-21 19:45 | NUR ---
Update Patient Status Pt agitated, yelling, and banging things in room. Reports she has not slept in 5 days. Offered to get something to help sleep. Pt states, " I take Trazodone to help me sleep, but I'm not going to take anything and I don't want any psychotropic meds either". Dr Fox notified by charge nurse and updated on pt status. Received orders. Pt refused Zyprexa and Seroquel. Pt demonstrating paranoid behavior. Pt redirected and able to calm down. Will continue close observation.
[2017-11-21 20:15] VITALS: BP 133/85
--- NOTE | 2017-11-21 22:16 | NUR ---
Trazodone ordered/given Pt agreed to take Trazodone for sleep. Oder received by charge nurse and medication given to patient. At time of administration pt informed me that she had been seeing people outside and having conversations with them. Pt made aware that there are no people outside. Redirected and was able to sit calmly.
[2017-11-21] MEDS ORDERED: TRAZODONE 50 MG TABLET PO SCH (22:30)
--- NOTE | 2017-11-21 22:37 | NUR ---
Seroquel Charge nurse notified Dr. Fox in regards to the auditory and visual hallucinations. Received order. Pt made aware of Seroquel, the use and benefits, and agreed. Medication given per order. Will closely monitor.
[2017-11-21] MEDS ORDERED: QUETIAPINE FUMARATE 100 MG TABLET PO ONE (23:00)
--- NOTE | 2017-11-21 23:16 | NUR ---
Reassess Trazodone/Seroquel Medication effective. Pt resting with eyes closed. Respirations even and unlabored. Continue close observation.
--- NOTE | 2017-11-22 00:04 | NUR ---
COWS deferred and Vitals refused Pt resting with eyes closed. Respirations even and unlabored. COWS deferred and pt refuses vitals. Continue with close observation.
--- NOTE | 2017-11-22 04:11 | NUR ---
COWS deferred/ Vitals refused Pt resting with eyes closed. Respirations even and unlabored. COWS deferred. Pt refused vitals.
--- NOTE | 2017-11-22 06:54 | NUR ---
End of Shift Endorsing 22 year old transgender male to female admitted 11/21/17 to [facility] for medically supervised withdrawal from Opiates. Last COWS 7 @ 1930. Pt is anxious, agitated, paranoid, and unable to sit still. Pt fearful and untrusting of staff and being at this/any facility. Pt had visual and auditory hallucinations and complained that she has not slept for 5 days. Received orders for Trazodone and Seroquel, both given with positive effect. Planned discharge this afternoon to [facility]. PO intake 500 ml, voided x 4, BM x 0, and slept x 7 hours. Bed low, side rails up x 2 and call schroeder in reach.
--- NOTE | 2017-11-22 07:46 | NUR ---
Start Of Shift Received 22 y/o M who identifies as a F that was admitted on 11/21/17 for medically supervised withdrawal for opiates. Pt has a flat and blunt affect, is guarded, presents irritability, agitation, anxiety. Per report, pt was having visual and auditory hallucinations last night and has not slept for 5 days. Pt has been given Trazodone prn and Seroquel x1 given and was effective. Last COWS 7 and pt slept 7 hrs. Pt is scheduled to be discharged today @1400 to [facility]. Side rails upx2, bed in low position, call light within reach. Safety measures in place. Will continue to monitor. Addendum: 11/22/17 at 0747 by TRAVIS YEN RN COWS 7
[2017-11-22 08:16] VITALS: BP 110/61
[2017-11-22] MEDS ORDERED: TUBERCULIN,PURIF.PROT.DERIV. 5 TU/0.1 ML TEST ID ONE (09:00)
[2017-11-22] MEDS: SPIRONOLACTONE 100 MG TABLET PO SCH (09:10)
[2017-11-22] MEDS: ESTRADIOL 2 MG PO SCH (09:10)
[2017-11-22] MEDS: [UNRECOGNIZED DRUG - OTHER] PO SCH (09:10)
[2017-11-22] MEDS: MULTIVITAMINS,THERAPEUTIC TABLET PO SCH (09:10)
[2017-11-22 12:07] LABS: HEPATITIS B SURFACE AG Negative (Negative)
[2017-11-22 12:13] VITALS: BP 92/60
--- NOTE | 2017-11-22 12:30 | NUR ---
COWS 7 Pt has a blunt affect, is guarded, presents irritability, agitation, anxiety. Refuses prns at this time. Safety measures in place. Will continue to monitor.
--- NOTE | 2017-11-22 14:25 | NUR ---
Discharge Note Pt is in stable condition, VS wnl. Last COWS 6. notified of pt d/c. Pt has been given d/c instructions and pt verbalized understanding. Pt has left the building with all belongings, d/c paperwork, home meds at 1425 on 11/22/17 and has been picked up by [employer] transportation.
[2017-11-22] MEDS ORDERED: TRAZODONE 50 MG TABLET PO SCH (21:00)
== END 2017-11-22 14:25 | DRG 897 ==
LOC: SRC 00:21
PROVIDERS: ADMIT Family Medicine Addiction Medicine; ATTEND Family Medicine Addiction Medicine
PROC: HZ2ZZZZ Detoxification Services for Substance Abuse Treatment (ICD-10-PCS; principal; 2017-11-21)
DX: F15.229 Other stimulant dependence with intoxication, unspecified (principal); F11.10 Opioid abuse, uncomplicated; F12.20 Cannabis dependence, uncomplicated; F10.10 Alcohol abuse, uncomplicated; Y90.9 Presence of alcohol in blood, level not specified; Z59.0 Homelessness; Z59.1 Inadequate housing; Z86.69 Personal history of other diseases of the nervous system and sense organs; Z91.89 Other specified personal risk factors, not elsewhere classified; Z81.1 Family history of alcohol abuse and dependence; F25.0 Schizoaffective disorder, bipolar type; F17.210 Nicotine dependence, cigarettes, uncomplicated; F41.9 Anxiety disorder, unspecified; F64.8 Other gender identity disorders
CPT/HCPCS: 36415; 80307; 80324; 80349; 83690; 83735; 84443; 85025; 86592; 86705; 86803; 87340; 87806; A4663; G0480